=== PATIENT | male | born 1955 | race Caucasian/White ===

== ENCOUNTER 2022-01-14 18:24 | Outpatient (REF) | payer MEDICARE, SELFPAY ==
[2022-01-14 21:40] LABS: ALT 45 U/L (16-63); AST 31 U/L (15-37); Albumin 4.5 g/dL (3.4-5.0); Alkaline Phosphatase 70 U/L (46-116); Anion Gap 11.1 mmol/L (3-11); BUN 22 mg/dL (7-18); Bilirubin, Total 0.7 mg/dL (0.2-1.0); CO2 24.9 mmol/L (21.0-32.0); Calcium 8.5 mg/dL (8.5-10.1); Chloride 103 mmol/L (98-107); Glucose 101 mg/dL (74-106); Potassium 4.2 mmol/L (3.5-5.1); Sodium 139 mmol/L (136-145); Total Protein 7.6 g/dL (6.4-8.2)
[2022-01-14 21:44] LABS: Abs Immature Grans 0.03 10^3/uL (0.0-0.06); Absolute Basophil Count 0.05 10^3/uL (0.0-0.2); Absolute Lymphocyte Count 9.23 10^3/uL (1.2-3.4); Absolute Monocyte Count 0.53 10^3/uL (0.1-0.8); Absolute Neutrophil Count 2.99 10^3/uL (1.2-6.7); Basophils % 0.4; Eosinophils % 0.9; HCT 52.6 % (40.0-50.0); HGB 18.1 g/dL (13.5-17.5); Immature Grans % 0.2; MCH 30.5 pg (27.0-33.0); MCHC 34.4 % (32.0-36.0); MCV 89 fL (80-95); MPV 9.8 fL (8.0-11.0); Monocytes % 4.1; Neutrophils % 23.1; Platelet Count 138 10^3/uL (130-400); RBC 5.94 10^6/uL (4.36-5.78); RDW 14.2 % (11.8-14.1); RDW-SD 45.2 fL; WBC 12.94 10^3/uL (4.4-10.8)
[2022-01-14 21:48] LABS: Absolute Eosinophil Count 0.12 10^3/uL (0.0-0.7)
[2022-01-14 22:45] LABS: Diff Comment Agrees w/ Instrument
[2022-01-14 22:46] LABS: Lymphocytes % 71.3; RBC Morphology Normal
== END 2022-01-14 18:25 | disposition home or self-care (01) ==
LOC: LBN 18:24
PROVIDERS: Visit Provider Nurse Practitioner Family
DX: R21 Rash and other nonspecific skin eruption (principal)
CPT/HCPCS: 80053; 85025